=== PATIENT | male | born 2000 | race Caucasian/White ===

== ENCOUNTER 2025-02-15 21:09 | Emergency (ER) | payer MEDICAID, SELFPAY ==
[2025-02-15 21:13] VITALS: BP 144/87; PULSE 88; RESP 18; TEMP 37; O2SAT 99; BMI 29.9
[2025-02-15 21:34] LABS: Coronavirus 19, PCR Not Detected (NotDetected); Influenza A, PCR Not Detected (NotDetected); Influenza B, PCR Not Detected (NotDetected)
--- NOTE | 2025-02-15 21:39 | HMH.EDGENADL ---
Discharge Plan Disposition Patient Disposition: Home, Self-Care Prescriptions Prescriptions: New benzonatate 100 mg capsule 100 mg PO TID PRN (Reason: cough) 5 Days Qty: 20 0RF kebxiukuibckrrn-yxlhggles-EL 2-30-10 mg/5 mL syrup 5 ml PO Q6H PRN (Reason: cold symptoms) 7 Days Qty: 118 0RF Referrals Follow up/Referrals: Ranjit Nunez DO [Staff Physician, Orthopedics] - See instructions Provider,Referral, [Primary Care Provider, Medical] - See instructions Activity Restrictions/Add. Instructions Additional Instructions/Restrictions: Your primary symptoms that are consistent with a viral upper respiratory infection. You have right lateral epicondylitis known as tennis elbow please continue to wear your brace take anti-inflammatory medications you may follow-up with the orthopedic surgeon for further management discussion Clinical Impressions Clinical Impression: URI (upper respiratory infection), Epicondylitis, lateral, right Stand Alone Forms Stand Alone Forms: Work/School Release Instructions Patient Instructions: Cough Print Language Print Language: Czech Discharge ED Provider: Marvin Rush General Adult HPI General Chief complaint: Cough Stated complaint: Cough; Scratchy Throat; Feeling Hot Time Seen by Provider: 02/15/25 21:29 Mode of Arrival: Ambulatory Source of Information: Patient Description of Symptoms (Recalled from ER Triage Doc. by RN): PT presented for evaluation of a cough and scratchy throat x1 day and feels warm and shaky last night. PT also has complaints of right elbow pain and stated he was previous dx with tinnitus about a month ago. History of Present Illness HPI narrative: Patient is a 24-year-old male here with multiple complaints. First he has had 1 to 2 days of mild cough and scratchy throat. No fevers no underlying comorbidities. Additionally he states he has right lateral elbow pain has been ongoing for quite a while he has a job where he has repetitive movements of his right upper extremity told he has tendinitis from [facility] but wants a second opinion and possibly referral for further management. Related Data Previous Rx's ?Medication ?Instructions ?Recorded benzonatate 100 mg capsule 100 mg PO TID PRN cough 5 days #20 02/15/25 caps ttffoijwlyrxdxf-rgsyynzyqpozeyf-SI 5 ml PO Q6H PRN cold symptoms 7 02/15/25 2 mg-30 mg-10 mg/5 mL oral syrup days #118 mL Allergies Allergy/AdvReac Type Severity Reaction Status Date / Time Penicillins Allergy Verified 02/15/25 21:20 [facility] Disclaimer: The information contained in this section may have been updated after the patient was seen, as this information can be updated by other users. Social History Smoking Status: Current every day smoker alcohol intake: never current occupational status: other Travel in the last 8 weeks?: None ROS Obtained: Yes All systems reviewed & no additional complaints except as documented Physical Exam General General appearance: alert and in no apparent distress ENT ENT exam: Present normal exam and normal oropharynx Respiratory Respiratory exam: Present normal lung sounds bilaterally; Absent respiratory distress Cardiovascular Cardiovascular exam: Present regular rate; Absent normal rhythm Abdominal Exam Abdominal exam: Present soft and distention Extremities Exam Extremities exam: Present other (Patient has pain and tenderness over the right lateral epicondyle that is focal worsening with any type of pronation supination of the right upper extremity) Neurological Exam Neurological exam: Present alert Medical Decision Making Medical Records Screening: Per USPSTF and CDC recommendations, given the prevalence of disease in our region, it is our hospital?s policy to screen for HIV and viral Hepatitis for all patients aged 18 and over and those with ongoing risk factors. Jermaine Inquiry Pt receiving controlled substance: No Vital Signs: 02/15/25 21:13 Temperature 98.6 F Temperature Source Oral Pulse Rate [Right] 88 Respiratory Rate 18 Blood Pressure [Right Arm] 144/87 H Blood Pressure Mean [Right Arm] 106 02 Sat by Pulse Oximetry 99 Oxygen Delivery Method Room Air Orders (Tests/Meds): ORDERS Category Date Time Status Rapid PCR Covid and Flu A/B Stat Lab 02/15/25 21:12 Received Medical Decision Narrative: 24-year-old with above history and physical. Exam is normal no concern for pneumonia is a normal respiratory exam normal oxygen saturation. Vitals are normal. Posterior pharynx exam is normal. Symptoms are consistent with a mild viral upper respiratory infection direct her exact etiology is not necessary to find out as it would not change any management he is not a candidate for antiviral therapy. Patient does have also evidence of right lateral epicondylitis have given a referral to orthopedic surgeon who can discuss further management with this patient. Symptomatic control discussed patient discharged in stable condition. Critical Care Critical Care Time Critical Care Time: No
[2025-02-15 21:41] VITALS: BP 128/74; PULSE 78; RESP 16; TEMP 36.6; O2SAT 98
== END 2025-02-15 21:44 | disposition home or self-care (01) ==
PROVIDERS: Emergency Provider Student in an Organized Health Care Education/Training Program
DX: R05.9 Cough, unspecified (principal); R07.0 Pain in throat; J06.9 Acute upper respiratory infection, unspecified; M77.11 Lateral epicondylitis, right elbow
CPT/HCPCS: 87636; 99283

== ENCOUNTER 2025-07-20 10:37 | Outpatient (CLI) | payer MEDICAID, SELFPAY ==
--- NOTE | 2025-07-20 10:43 | US_ITS ---
FINAL REPORT TECHNIQUE: Sonographic images of the right upper quadrant were obtained. CLINICAL HISTORY: RUQ PAIN -- NUMBING SENSATION--NAUSEA DIZZY FINDINGS: The pancreas is obscured. There is marked diffuse fatty infiltration of the liver. There appears to be hepatomegaly. The gallbladder is normal without evidence of gallstones. There is questionable sludge in the gallbladder. There is focal fatty sparing adjacent to the gallbladder. There is no ductal dilation. The common duct measures 3 mm. Limited images of the right kidney are unremarkable. IMPRESSION: Fatty liver with what appears to be hepatomegaly. Focal fatty sparing adjacent to the gallbladder with questionable sludge. Reviewed, Interpreted and Dictated by Stephen Greenberg MD Transcribed by Marilyn Uriarte Authenticated and [facility]
--- OUTSIDE RECORDS SUMMARY | 2025-07-20 10:47 | XMS_ITS | Clinical Summary ---
Author Organization [facility] Address [address] [place] [address] Care Team Providers Care Environmental Education Specialist Name Role Phone System, Provider Not In Primary Care Provider Un available Allergies No known active allergies Medications omeprazole (priLOSEC) 40 MG capsule Take 1 capsule by mouth Daily. Active Diclofenac Sodium (Voltaren) 1 % gel gelIndications:La teral epicondylitis of right elbow Apply 4 g topically to the appropriate area as directed 4 (Four) Times a Day As Needed (pain). 50 g Active diclofenac (VOLTAREN) 75 MG EC tabletIndications :Lateral epicondylitis of right elbow Take 1 tablet by mouth 2 (Two) Times a Day As Needed (pain). 28 tablet Active Social History Tobacco Use Types Packs/Day Years Used Date Smoking Tobacco: Every Day Cigarettes 1 11.8 Started: 2013 Smokeless Tobacco: Never Tobacco Cessation:Ready to Q uit: No; Counseling Given: No Alcohol Use Standard Drinks/Week Comments Yes 0 (1 standard drink = 0.6 oz pur e alcohol) socially Sex and Gender Information Value Date Recorded Sex Assigned at Not on file Legal Sex Male 2:52 PM EDT Gender Identity Not on file Sexual Orientation Not on file Last Filed Vital Signs Vital Sign Reading Time Taken Comments Blood Pressure 135/90 01/14/2025 3:29 PM EDT Pulse 87 01/14/2025 3:29 PM EDT Temperature 36.6 C (97.8 F) 01/14/2025 3:29 PM EDT Respiratory Rate 16 01/14/2025 3:29 PM EDT Oxygen Saturation 99% 01/14/2025 3:29 PM EDT Inhaled Oxygen Concentration - - Weight 94.8 kg (209 lb) 01/14/2025 3:29 PM EDT Height 175.3 cm (5' 9 ) 01/14/2025 3:29 PM EDT Body Mass Index 30.86 01/14/2025 3:29 PM EDT Plan of Treatment Health Maintenance Due Date Last Done Comments ANNUAL PHYSICAL 1998 HEPATITIS C SCREENING 1998 TDAP/TD VACCINES (2 - Td or Tdap) 04/02/2021 04/02/2011 INFLUENZA VACCINE 04/14/2025 06/16/2012, , 07/22/2010, Additional history exists Pneumococcal Vaccine 0-49 Aged Out No longer eligible based on patient's age to complete this topic Insurance [employer] Care Teams Environmental Education Specialist Relationship Specialty Start Date End Date System, [place] [address] PCP - General 01/14/25
--- OUTSIDE RECORDS SUMMARY | 2025-07-20 10:48 | XMS_ITS | Clinical Summary ---
Author Organization [facility] Address [address] [place] [address] Phone Care Team Providers Care Medical Services Manager Name Role Phone Natan Álvarez MD Primary Care Provider [phone] Allergies Active Allergy Reactions Criticality Noted Date Comments Hymenoptera Allergenic Extract Swelling 08/18 Penicillins Rash Medications sucralfate (CARAFATE) 100 mg/mL Oral SuspensionIndica tions:Dyspepsia Take 10 mL by mouth 4 times daily. 414 mL 1 4 Active albuterol (PROVENTIL HFA;VENTOLIN HFA) 90 mcg/actuation Inhl HFA Aerosol InhalerIndicatio ns:Acute bronchitis, unspecified organism Inhale 2 Puffs into the lungs every 6 hours as needed for Wheezing. 9 g 4 Active Brompheniramine- Pseudoeph-DM (BROMFED DM) 2-30-10 mg/5 mL Oral SyrupIndications :Acute bronchitis, unspecified organism Take 5 mL by mouth 3 times daily. 118 mL 4 Active azithromycin (ZITHROMAX) 250 mg Oral TabletIndication s:Acute bronchitis, unspecified organism Take 2 tablets (500 mg) on Day 1, followed by 1 tablet (250 mg) once daily on Days 2 through 5. 6 Tablet 4 Active omeprazole (PRILOSEC) 20 mg Oral Capsule, Delayed Release(E.C.)Ind ications:Dyspeps ia Take 1 Capsule by mouth 2 times daily. 180 Capsule 5 Active Active Problems Problem Noted Date Diagnosed Date Foreign body of left cornea 04/29/2022 Assessment & Plan (04/29/2022 11:48 AM EDT): (+) removal at ED 04/26/2022. No FB, but corneal edema remains. Educated and reassured. Discontinue Bleph-[address] 1 gtt qid/2 days, 1 gtt bid/2 days, 1 gtt qday/1 day, then stop. Patient aware to call with worsening or persistent symptoms. Recommend dilated exams every 2-5 years. History of COVID-19 09/26/2021 Overview (09/26/2021): 2020 Immunizations Immunization Administration Dates Next Due DTaP 08/25/2002, 0,02/06/1999,12/03,1998 Hepatitis A, Unspecified Formulation 05/22/2011 Hepatitis B, Unspecified Formulation 08/15/1999, 1998,1998 HiB, Unspecified Formulation 08/15/1999, 03/09/1999,1998,10/03 IPV 08/25/2002, 9,1998,10/03 Influenza Vaccine, Unspecifi ed Formulation 06/16/2012,07/22/2010 MMR 08/25/2002,11/06/1999 Meningococcal Conjugate 04/02/2011 Tdap 04/02/2011 Varicella 04/02/2011,08/15/1999 Surgical History Surgery Date Site/Laterality Comments LASIK CATARACT REMOVAL Medical History Medical History Date Comments Acne Family History Medical History Relation Name Comments Anxiety Disorder Father Depression Father Anxiety Disorder Mother Glaucoma Neg Hx Macular Degen Neg Hx Relation Name Status Comments Father Alive Mother Alive Social History Tobacco Use Types Packs/Day Years Used Date Smoking Tobacco: Every Day Cigarettes 1 5.9 Started: 09/14/2017 Smokeless Tobacco: Never Tobacco Cessation:Ready to Q uit: No; Counseling Given: No Alcohol Use Standard Drinks/Week Comments Yes 0 (1 standard drink = 0.6 oz pur e alcohol) occasional AUDIT-C Answer Date Recorded Q1: How often do you have a drink containing alc ohol? 2-4 times a month 03/11/2021 Average Number of Drinks Not on file 021 Frequency of Binge Drinking Not on file 02/13 PHQ-2 Answer Date Recorded PHQ-2 Total Score 0 02/09/2024 Sex and Gender Information Value Date Recorded Sex Assigned at Not on file Legal Sex Male 4:03 AM EDT Gender Identity Not on file Sexual Orientation Not on file Last Filed Vital Signs Vital Sign Reading Time Taken Comments Blood Pressure 120/80 05/23/2024 9:28 AM EDT Pulse 98 05/23/2024 9:28 AM EDT Temperature 37.9 C (100.3 F) 05/23/2024 9:28 AM EDT Respiratory Rate 20 05/23/2024 9:28 AM EDT Oxygen Saturation 98% 05/23/2024 9:28 AM EDT Inhaled Oxygen Concentration - - Weight 92.5 kg (204 lb) 05/23/2024 9:28 AM EDT Height 175.3 cm (5' 9 ) 05/23/2024 9:28 AM EDT Body Mass Index 30.13 05/23/2024 9:28 AM EDT Plan of Treatment Health Maintenance Due Date Last Done Comments HPV (1 - Male 3-dose series) 2013 Pneumococcal Vaccine 0-49 (1 of 2 - PCV) 2017 DTaP/TDaP/Td (7 - Td or Tdap) 04/02/2021 04/02/2011, 08/25/2002, 11/06/1999, Additional history exists Annual Wellness Exam 08/21/2024 08/21/2023 COVID-19 Vaccine ( - season) 2025 Influenza Vaccine (#1) 2025 06/16/2012, 2009 Hepatitis B Vaccine Completed 08/15/1999, 1998, 1998 Meningococcal B Vaccine Aged Out No l onger eligible based on patient's age to complete this topic Goals Goal Patient Goal Type Associated Problems Recent Progress Patient-Stated? Author Maintain a healthy diet, exercise regularly and maintain an ideal body weight General No Prema Robles APRN Stay Tobacco Free Lifestyle No Prema Robles APRN Insurance [employer] [address] [employer] [address] [address] [employer] [place] [address] [place] [address] [place] [address] [address] [place] [id number] [place] [address] [place] Care Teams Medical Services Manager Relationship Specialty Start Date End Date Natan Álvarez MD [address] [place] [phone] PCP - General Internal Medicine 02/15/19
== END 2025-07-20 23:59 | disposition home or self-care (01) ==
LOC: RAD 10:40
PROVIDERS: PCP Internal Medicine Adolescent Medicine; Visit Provider Internal Medicine Adolescent Medicine
DX: K76.0 Fatty (change of) liver, not elsewhere classified (principal); R10.11 Right upper quadrant pain; R93.2 Abnormal findings on diagnostic imaging of liver and biliary tract
CPT/HCPCS: 76705

== ENCOUNTER 2025-07-31 09:26 | Outpatient (CLI) | payer MEDICAID, SELFPAY ==
[2025-07-31 09:56] LABS: Hematocrit 46.2 % (42.0-52.0); Hemoglobin 17.4 g/dL (14.1-18.0); Immature Granulocytes % 0.3 %; Mean Corpuscular HGB Conc 37.7 g/dL (31.8-35.4); Mean Corpuscular Hemoglobin 34.0 pg (27.0-31.2); Mean Corpuscular Volume 90.2 fl (80-94); Nucleated Red Blood Cells % 0 %; Platelet Count 148 K/mm3 (142-424); Red Blood Count 5.12 M/mm3 (4.60-6.20); Red Cell Distribution Width-SD 36.8 fL; White Blood Count 6.6 K/mm3 (4.8-10.8)
--- NOTE | 2025-07-31 10:21 | NM_ITS ---
FINAL REPORT CLINICAL HISTORY: GALLBLADDER SLUDGE 10:30am 8.83 mci tc choletec 2 mcg cck no pain with cck COMPARISON: None FINDINGS: Sequential anterior projection images of the abdomen were obtained after the intravenous injection of 8.83 mCi technetium 99m Choletec. There is normal uptake of radiotracer by the liver. The bile ducts are visualized by 5 minutes. Gallbladder activity is seen by 5 minutes. Bowel activity is noted by 25 minutes. After 1 hour, 2 ?g of CCK was injected intravenously for calculation of gallbladder ejection fraction. The gallbladder ejection fraction is 76%, which is within normal limits. IMPRESSION: No evidence of cystic duct or bile duct obstruction. Normal gallbladder ejection fraction of 6%. Reviewed, Interpreted and Dictated by Antonio Aguirre MD Transcribed by Autumn Collado Authenticated and [facility]
[2025-07-31 11:04] LABS: Alanine Aminotransferase 140 U/L (12-78); Albumin Level 4.9 g/dl (3.5-5.0); Albumin/Globulin Ratio 1.5 (1.1-1.8); Alkaline Phosphatase 94 U/L (38-126); Anion Gap 15.9 mEq/L (5-15); Aspartate Amino Transferase 100 U/L (17-59); Bilirubin,Direct 0.3 mg/dl (0.0-0.4); Bilirubin,Indirect 0.7 mg/dL (0.0-0.9); Bilirubin,Total 1.0 mg/dl (0.2-1.3); Bilirubin,Unconjugated 0.7 mg/dL (0.0-1.1); Blood Urea Nitrogen 14 mg/dl (9-20); Calcium 9.7 mg/dl (8.4-10.2); Carbon Dioxide 22 mmol/L (22.0-30.0); Chloride 102 mmol/L (98-107); Creatinine,Serum 1.00 mg/dl (0.66-1.25); Estimated Glomerular Filt Rate 90 ml/min (>60); GFR (African American) 108 ML/MIN (>60); Globulin 3.3 g/dL (1.3-3.2); Glucose 112 mg/dl (74-100); Potassium 3.9 mmoL/L (3.5-5.1); Sodium 136 mmol/L (136-145); Total Protein,Serum 8.2 g/dl (6.3-8.2)
[2025-07-31] MEDS: ISOTOPE CHOLETECH;1 DOSE (UP TO 15 MCI) IV (12:59)
[2025-07-31] MEDS: SODIUM CHLORIDE 0.9% 10ML SYR (RAD ONLY) 10 ML IV (12:59)
[2025-07-31] MEDS: SINCALIDE 2 MCG in 0.9 % SODIUM CHLORIDE 50 ML 100 MCG IV (13:34)
== END 2025-07-31 23:59 | disposition home or self-care (01) ==
LOC: RAD 09:29
PROVIDERS: PCP Internal Medicine Adolescent Medicine; Visit Provider Internal Medicine Adolescent Medicine
DX: K82.8 Other specified diseases of gallbladder (principal); K76.0 Fatty (change of) liver, not elsewhere classified; R16.0 Hepatomegaly, not elsewhere classified; R74.8 Abnormal levels of other serum enzymes
CPT/HCPCS: 36415; 78227; 80053; 80074; 82248; 85025; 86225; 86235; A9537; J2805